=== PATIENT | male | born 1990 | race Two or more races ===

== ENCOUNTER 2019-02-28 02:06 | Emergency (ER) | payer MEDICAID ==
[~2019-02-28] VITALS: Ht 190.5 cm; Wt 95.3 kg
--- NOTE | 2019-02-28 02:22 | NUR ---
[id number] for paranoid thoughts and feeling anxious. denies si / hi. pt admits to meth. pt aox4 rr even and unlabored. no sob noted. no nvd at this time. pt seen by dr. field. pt personal belongings placed in locker per pt request.
[2019-02-28] MEDS ORDERED: IV NS 0.9% 1,000 ML IV PRN (02:30)
[2019-02-28 07:19] VITALS: BP 124/54
== END 2019-02-28 07:19 | disposition home or self-care (01) ==
LOC: ER 02:15
DX: F15.10 Other stimulant abuse, uncomplicated (principal); F11.10 Opioid abuse, uncomplicated; R00.0 Tachycardia, unspecified; F17.200 Nicotine dependence, unspecified, uncomplicated; Z59.0 Homelessness
CPT/HCPCS: 93005; 99283; J7030

== ENCOUNTER 2019-07-30 23:58 | Emergency (ER) | payer MEDICAID, OTHER ==
[~2019-07-30] VITALS: Ht 188 cm; Wt 86.2 kg
[2019-07-31 00:05] VITALS: BP 135/81
== END 2019-07-31 00:41 ==
LOC: ER 23:58
DX: Z02.89 Encounter for other administrative examinations (principal); Z59.0 Homelessness

== ENCOUNTER 2019-08-25 06:27 | Emergency (ER) | payer MEDICAID, OTHER ==
[~2019-08-25] VITALS: Ht 190.5 cm; Wt 86.2 kg
[2019-08-25 06:43] VITALS: BP 139/82
--- NOTE | 2019-08-25 06:50 | NUR ---
PT CAME TO THE ED C/O PALPITATIONS WHEN HE WOKE UP. PT STATED THAT HE HAS NEVER HAD THIS FEELING BEFORE. PT AAOX4, VSS, RR EVEN AND UNLABORED ON RA W/ NAD NOTED. PT CONNECTED TO THE MONITOR AND POX
--- NOTE | 2019-08-25 06:52 | NUR ---
AWAITING FOR MD FLORES
--- NOTE | 2019-08-25 07:10 | NUR ---
SEEN AND EXAMINED BY .
--- NOTE | 2019-08-25 07:17 | NUR ---
TECH AT BEDSIDE FOR EKG.
--- NOTE | 2019-08-25 07:30 | NUR ---
Patient discharged to home in stable condition. Written and verbal after care instructions given. Patient verbalizes understanding of instruction.
== END 2019-08-25 07:31 | disposition home or self-care (01) ==
LOC: ER 06:30
DX: F41.0 Panic disorder [episodic paroxysmal anxiety] (principal); R00.2 Palpitations; Z59.0 Homelessness

== ENCOUNTER 2019-09-16 08:21 | Emergency (ER) | payer MEDICAID ==
[~2019-09-16] VITALS: Ht 182.9 cm; Wt 81.6 kg
--- NOTE | 2019-09-16 08:21 | NUR ---
PT BIB SELF C/O RAPID HEART RATE "AFTER TAKING DOPE MY HEART IS LIKE RACING." PT AAOX4, NOT IN RESPIRATORY DISTRESS, HOOKED TO RULING TECHNICIAN, KEPT RESTED AND COMFORTABLE, WILL CONTINUE TO MONITOR.
--- NOTE | 2019-09-16 08:30 | NUR ---
SEEN AND EXAMINED BY
--- NOTE | 2019-09-16 08:35 | NUR ---
IV LINE ESTABLISHED BLOOD DRAWN AND SENT TO LAB.
[2019-09-16 08:58] LABS: BASOPHILS # (AUTO) 0.1 /CMM (0.0-0.2); BASOPHILS % (AUTO) 1.1 % (0.0-2.0); EOSINOPHILS % (AUTO) 2.5 % (0.0-6.0); HEMATOCRIT 41 % (39-51); HEMOGLOBIN 13.5 g/dL (13.5-17.5); LYMPHOCYTES # (AUTO) 2.3 /CMM (0.8-4.8); LYMPHOCYTES % (AUTO) 41.3 % (20.0-44.0); MEAN CORPUSCULAR HGB CONC 33 g/dl (31.0-36.0); MEAN CORPUSCULAR VOLUME 90 fL (80-96); MONOCYTES # (AUTO) 0.5 /CMM (0.1-1.30); MONOCYTES % (AUTO) 9.4 % (2.0-12.0); NEUTROPHILS # (AUTO) 2.6 /CMM (1.8-8.9); NEUTROPHILS % (AUTO) 45.7 % (43.0-81.0); PLATELET COUNT (AUTO) 293 /CMM (150-450); WHITE BLOOD COUNT (AUTO) 5.6 K/uL (4.3-11.0)
[2019-09-16] MEDS ORDERED: IV NS 0.9% 500 ML BAG IV ONE (09:00)
[2019-09-16 09:05] LABS: CALCIUM, SERUM 9.3 mg/dL (8.5-10.1); CARBON DIOXIDE 33 mmol/L (21-32); CHLORIDE 104 mmol/L (98-107); CREATININE 1.1 mg/dL (0.6-1.3); GLUCOSE 120 mg/dL (74-106); POTASSIUM 3.5 mmol/L (3.5-5.1); SODIUM SERUM 143 mmol/L (136-145); UREA NITROGEN, BLOOD 12 mg/dL (7-18)
--- NOTE | 2019-09-16 09:05 | NUR ---
PAINT STRIPING MACHINE OPERATOR AT BEDSIDE FOR XRAY.
[2019-09-16 09:10] LABS: ALANINE AMINOTRANSFERASE 15 U/L (12-78); ALBUMIN 3.7 g/dL (3.4-5.0); ALCOHOL, BLOOD < 3 mg/dL (0-0); ALKALINE PHOSPHATASE 94 U/L (46-116); ASPARTATE AMINOTRANSFERASE 19 U/L (15-37); BILIRUBIN,DIRECT 0.1 mg/dL (0.0-0.2); BILIRUBIN,TOTAL 0.3 mg/dL (0.2-1.0); TOTAL PROTEIN, SERUM 7.6 g/dL (6.4-8.2)
[2019-09-16 09:11] LABS: ACETAMINOPHEN < 2 ug/ml (10-30)
[2019-09-16 09:14] LABS: BILIRUBIN,URINE Negative (NEGATIVE); BLOOD, URINE Negative Ery/uL (NEGATIVE); COLOR,URINE Yellow (YELLOW); KETONES,URINE Negative (NEGATIVE); LEUKOCYTE ESTERASE ,URINE Negative (NEGATIVE); NITRITE, URINE Negative (NEGATIVE); PH,URINE 5.5 (5.0-8.0); PROTEIN,URINE 30 mg/dl (NEGATIVE); UGLUCOSE Negative (NEGATIVE); UROBILINOGEN,URINE 0.2 EU/dL (0.2)
[2019-09-16 09:16] LABS: APPEARANCE,URINE SLIGHTLY HAZY (CLEAR)
[2019-09-16 09:17] LABS: BACTERIA,URINE None seen /HPF (None Seen); RBC,URINE 0-1 /HPF (0-2); SQUAMOUS EPITHELIAL CELL,UR Few /HPF (None Seen)
[2019-09-16 10:06] VITALS: BP 132/75
--- NOTE | 2019-09-16 10:06 | NUR ---
IV removed. Catheter intact and site benign. Pressure and 4x4 applied to site. No bleeding noted.Patient discharged to home in stable condition. Written and verbal after care instructions given. Patient verbalizes understanding of instruction.
== END 2019-09-16 10:07 | disposition home or self-care (01) ==
LOC: ER 08:21
DX: R00.2 Palpitations (principal); F11.10 Opioid abuse, uncomplicated; F17.200 Nicotine dependence, unspecified, uncomplicated; Z59.0 Homelessness
CPT/HCPCS: 36415; 71045; 80048; 80076; 80305; 80307; 80329; 81001; 84484; 85025; 93005; 99285; G0480; J7030; 81000-TC

== ENCOUNTER 2019-09-16 22:30 | Emergency (ER) | payer MEDICAID ==
[~2019-09-16] VITALS: Ht 190.5 cm; Wt 72.6 kg
[2019-09-16 22:40] VITALS: BP 150/101
[2019-09-16] MEDS ORDERED: LORAZEPAM 1 MG TABLET ONE (22:53)
[2019-09-16] MEDS ORDERED: LORAZEPAM 1 MG TABLET PO ONE (23:00)
== END 2019-09-16 23:32 | disposition home or self-care (01) ==
LOC: ER 22:37
DX: T40.2X5A Adverse effect of other opioids, initial encounter (principal); F41.9 Anxiety disorder, unspecified; F17.200 Nicotine dependence, unspecified, uncomplicated; Y92.89 Other specified places as the place of occurrence of the external cause

== ENCOUNTER 2019-09-29 05:27 | Emergency (ER) | payer MEDICAID ==
[~2019-09-29] VITALS: Ht 190.5 cm; Wt 81.6 kg
[2019-09-29 05:29] VITALS: BP 136/85
--- NOTE | 2019-09-29 05:40 | NUR ---
PATIENT ER BED 10 C/O "HEART BEATING FAST" 1x HOUR AGO. PATIENT STATES THAT HE LAST USED HEROIN 2xDAYS AGO. DENIES NAUSEA. DENIES CHEST PAIN. PATIENT IS AAOX4. NO SOB. BREATHING EVENLY AND UNLABORED ON ROOM AIR. CONNECTED TO MONITOR.
--- NOTE | 2019-09-29 05:45 | NUR ---
PATIENT STATES, "I DON'T WANT TO BE HERE ANYMORE". PATIENT LEFT THE HOSPITAL.
== END 2019-09-29 05:47 | disposition left against medical advice (07) ==
LOC: ER 05:27
DX: Z53.21 Procedure and treatment not carried out due to patient leaving prior to being seen by health care provider (principal); F41.9 Anxiety disorder, unspecified

== ENCOUNTER 2019-09-29 06:17 | Emergency (ER) | payer MEDICAID ==
[~2019-09-29] VITALS: Ht 190.5 cm; Wt 81.6 kg
[2019-09-29] MEDS ORDERED: LORAZEPAM 1 MG TABLET PO ONE (06:30)
[2019-09-29 06:34] VITALS: BP 135/77
[2019-09-29] MEDS ORDERED: LORAZEPAM 0.5 MG TABLET ONE (06:35)
--- NOTE | 2019-09-29 06:36 | NUR ---
PATIENT CAME TO ER BED 10 C/O PALPITATIONS. PATIENT STATES THAT HE DID USE IV HEROIN 2x DAYS AGO. PATIENT IS AAOX4. NO SOB. BREATHING EVENLY AND UNLABORED ON ROOM AIR. CONNECTED TO MONITOR.
--- NOTE | 2019-09-29 06:37 | NUR ---
PT MEDICATED ORDERED
--- NOTE | 2019-09-29 06:37 | NUR ---
EKG AT BEDSIDE
--- NOTE | 2019-09-29 07:17 | NUR ---
Patient discharged to home in stable condition. Written and verbal after care instructions given. Patient verbalizes understanding of instruction.
== END 2019-09-29 07:17 | disposition home or self-care (01) ==
LOC: ER 06:18
DX: F41.9 Anxiety disorder, unspecified (principal); F17.200 Nicotine dependence, unspecified, uncomplicated

== ENCOUNTER 2019-10-07 19:57 | Emergency (ER) | payer MEDICAID ==
[~2019-10-07] VITALS: Ht 188 cm; Wt 81.6 kg
[2019-10-07 19:58] VITALS: BP 141/68
[2019-10-07] MEDS ORDERED: LORAZEPAM 1 MG TABLET ONE (20:27)
[2019-10-07] MEDS: LORAZEPAM 1 MG TABLET PO ONE (20:30)
--- NOTE | 2019-10-07 20:35 | NUR ---
BIBS FOR C/O "WOKE UP WITH MY HEART BEATING FAST". PT AAOX4, VSS. RR EVEN & UNLABORED. DENIES CP, SOB, DIZZINESS, N/V, WEAKNESS, FEVER AT THIS TIME. PT SEEN & EVAL'D BY ASHA GERARD. PLACED ON SENIOR JAVA DATA ARCHITECT, SR. WILL CONT TO MONITOR.
== END 2019-10-07 20:59 | disposition home or self-care (01) ==
LOC: ER 19:57
DX: R00.2 Palpitations (principal); F11.10 Opioid abuse, uncomplicated; F41.9 Anxiety disorder, unspecified; F17.200 Nicotine dependence, unspecified, uncomplicated; Z59.0 Homelessness

== ENCOUNTER 2019-10-11 04:01 | Emergency (ER) | payer MEDICAID ==
[~2019-10-11] VITALS: Ht 188 cm; Wt 81.6 kg
--- NOTE | 2019-10-11 04:07 | NUR ---
CALLED FOR TRIAGE . NO ANSWER
--- NOTE | 2019-10-11 04:34 | NUR ---
SEEN AND EVALUATED BY .
--- NOTE | 2019-10-11 04:34 | NUR ---
PATIENT CAME TO ER BED 11 C/O "FEELING LIKE MY HEART IS BEATING FAST". PATIENT DENIES DRUG USE. PATIENT IS AAOX4. NO SOB. BREATHING EVENLY AND UNLABORED ON ROOM AIR. CONNECTED TO MONITOR. Addendum: 10/11/19 at 0457 by BILLY PATIENT DENIES ANY CHEST PAIN.
[2019-10-11] MEDS ORDERED: LORAZEPAM 0.5 MG TABLET ONE (04:50)
[2019-10-11] MEDS ORDERED: LORAZEPAM 1 MG TABLET PO ONE (05:00)
--- NOTE | 2019-10-11 06:30 | NUR ---
Patient discharged to home in stable condition. Written and verbal after care instructions given. Patient verbalizes understanding of instruction.
[2019-10-11 06:31] VITALS: BP 119/68
== END 2019-10-11 06:31 | disposition home or self-care (01) ==
LOC: ER 04:04
DX: F41.9 Anxiety disorder, unspecified (principal); F17.200 Nicotine dependence, unspecified, uncomplicated

== ENCOUNTER 2019-10-12 08:08 | Emergency (ER) | payer MEDICAID ==
[~2019-10-12] VITALS: Ht 188 cm; Wt 81.6 kg
[2019-10-12 08:17] VITALS: BP 133/78
--- NOTE | 2019-10-12 08:33 | NUR ---
PT LEFT ED WITHOUT BEING SEEN BY ERMD.
== END 2019-10-12 08:35 | disposition left against medical advice (07) ==
LOC: ER 08:11
DX: F41.9 Anxiety disorder, unspecified (principal); F17.200 Nicotine dependence, unspecified, uncomplicated

== ENCOUNTER 2019-10-25 09:40 | Emergency (ER) | payer MEDICAID ==
[~2019-10-25] VITALS: Ht 188 cm; Wt 77.1 kg
[2019-10-25 09:52] VITALS: BP 125/69
--- NOTE | 2019-10-25 10:24 | NUR ---
Patient discharged to home in stable condition. Written and verbal after care instructions given. Patient verbalizes understanding of instruction.
== END 2019-10-25 10:27 | disposition home or self-care (01) ==
LOC: ER 09:44
DX: F41.9 Anxiety disorder, unspecified (principal)

== ENCOUNTER 2020-08-24 01:57 | Emergency (ER) | payer MEDICAID ==
[~2020-08-24] VITALS: Ht 182.9 cm; Wt 81.6 kg
[2020-08-24 02:07] VITALS: BP 129/85
== END 2020-08-24 05:58 | disposition home or self-care (01) ==
LOC: ER 02:00
DX: F19.90 Other psychoactive substance use, unspecified, uncomplicated (principal); F17.200 Nicotine dependence, unspecified, uncomplicated